=== PATIENT | female | born 1970 | race Caucasian/White ===

== ENCOUNTER 2016-05-09 00:37 | Observation (INO) | payer BC, OTHER, SELFPAY ==
[~2016-05-09] VITALS: Ht 162.6 cm; Wt 72.3 kg
[2016-05-09 01:09] LABS: HEMOGLOBIN 13.7 g/dL (11.7-16.4)
[2016-05-09 01:20] LABS: ASPARTATE AMINO TRANSFERASE 12 U/L (15-37); BLOOD UREA NITROGEN 19 mg/dL (7-18)
[2016-05-09] MEDS ORDERED: SODIUM CHLORIDE 0.9% 1,000ML IVBOLUS ONE (03:00)
[2016-05-09] MEDS ORDERED: ONDANSETRON 2MG/ML, 2ML IVPush ONE ×2 (03:00→05:00)
[2016-05-09] MEDS ORDERED: ONDANSETRON 2MG/ML, 2ML ONE ×2 (03:04→09:22)
[2016-05-09] MEDS ORDERED: HYDROmorphone 1 MG/ML, 1ML ONE ×3 (03:04→05:07)
[2016-05-09] MEDS: HYDROmorphone 1 MG/ML, 1ML IVPush PRN ×2 (03:11→03:43)
[2016-05-09] MEDS ORDERED: POTASSIUM CHLORIDE 20 MEQ in D5%-0.45% NACL 1,000 ML IV ONE (04:36)
[2016-05-09] MEDS ORDERED: HYDROmorphone 1 MG/ML, 1ML IVPush PRN (05:00)
[2016-05-09] MEDS ORDERED: HYDROmorphone 1 MG/ML, 1ML IV ONE (05:00)
[2016-05-09] MEDS ORDERED: SODIUM CHLORIDE FLUSH 10ML SYR IVF PRN (05:00)
[2016-05-09] MEDS ORDERED: ONDANSETRON 2MG/ML, 2ML IVPush PRN ×2 (05:00→10:30)
[2016-05-09] MEDS ORDERED: PROMETHAZINE 25 MG/ML, 1ML IM PRN (05:00)
[2016-05-09 05:30] VITALS: BP 103/65
[2016-05-09 06:46] VITALS: BP 84/54
[2016-05-09] MEDS ORDERED: BUPIVACAINE/PF-EPI 0.5% 1:200K ONE (07:14)
[2016-05-09] MEDS ORDERED: MIDAZOLAM 1 MG/ML, 2ML ONE (09:15)
[2016-05-09] MEDS ORDERED: FENTANYL PF 250 MCG/5ML ONE (09:15)
[2016-05-09] MEDS ORDERED: PROPOFOL 10 MG/ML, 20ML ONE (09:22)
[2016-05-09] MEDS ORDERED: CEFOTETAN 2 GM ONE (09:22)
[2016-05-09] MEDS ORDERED: GLYCOPYRROLATE 0.2MG/1ML ONE (09:22)
[2016-05-09] MEDS ORDERED: ROCURONIUM 10 MG/ML ONE (09:22)
[2016-05-09] MEDS ORDERED: DEXAMETHASONE 4 MG/ML, 1ML ONE (09:22)
[2016-05-09] MEDS ORDERED: NEOSTIGMINE 1 MG/ML, 10ML ONE (09:22)
[2016-05-09] MEDS ORDERED: SUCCINYLCHOLINE 20 MG/ML, 10ML ONE (09:22)
[2016-05-09] MEDS ORDERED: SCOPOLAMINE PATCH, 1.5MG PATCH.TD72 TD ONE (09:34)
[2016-05-09] MEDS ORDERED: BUPIVACAINE/PF-EPI 0.5% 1:200K INFIL ONE (09:40)
[2016-05-09] MEDS ORDERED: HYDROcodone/APAP 5/325 TABLET PO PRN (10:30)
[2016-05-09] MEDS ORDERED: morphine SULFATE 10 MG/ML, 1ML IVPush PRN (10:30)
[2016-05-09] MEDS ORDERED: KETOROLAC 30 MG/1 ML IVPush PRN (10:30)
[2016-05-09] MEDS ORDERED: ACETAMINOPHEN 650 MG/20.3 ML UDC ONE (10:45)
[2016-05-09] MEDS ORDERED: FENTANYL PF 100 MCG/2ML ONE (10:45)
[2016-05-09] MEDS ORDERED: ACETAMINOPHEN 325 MG TABLET ONE (10:46)
[2016-05-09] MEDS ORDERED: OXYcodone 5 MG/5 ML ORAL.SOL UDC ONE (10:46)
[2016-05-09] MEDS: FENTANYL PF 100 MCG/2ML IV PRN ×2 (10:47→10:53)
[2016-05-09] MEDS ORDERED: ACETAMINOPHEN 325 MG TABLET PO PRN (11:00)
[2016-05-09] MEDS ORDERED: HYDROmorphone 1 MG/ML, 1ML IV PRN (11:00)
[2016-05-09] MEDS ORDERED: OXYcodone 5 MG/5 ML ORAL.SOL UDC PO PRN (11:00)
[2016-05-09] MEDS ORDERED: PROMETHAZINE 25 MG/ML, 1ML IV PRN (11:00)
[2016-05-09] MEDS ORDERED: KETOROLAC 30 MG/1 ML ONE (11:02)
[2016-05-09 13:14] VITALS: BP 105/65
[2016-05-09 16:19] VITALS: BP 104/69
[2016-05-09] MEDS ORDERED: HYDR-882 PO (16:35)
[2016-05-09] MEDS ORDERED: ONDA4TAB7 PO (16:36)
[2016-05-10] MEDS ORDERED: ENOXAPARIN 40 MG/0.4 ML SQ SCH (10:30)
== END 2016-05-09 16:45 | disposition home or self-care (01) ==
LOC: ED 03:37 → EDIP 04:36 → 4NOR 05:27 → DCLOUNGE 16:30
PROVIDERS: ADMIT Surgery; ATTEND Surgery
DX: K80.00 Calculus of gallbladder with acute cholecystitis without obstruction (principal); R11.2 Nausea with vomiting, unspecified; K82.8 Other specified diseases of gallbladder; Z98.890 Other specified postprocedural states
CPT/HCPCS: 36415; 47562; 76700; 80053; 81003; 83690; 84703; 85025; 88304; 96361; 96374; 96375; 96376; 99285; G0378; J0330; J1100; J1170; J1885; J2250; J2405; J2704; J2710; J3010; J3480; J7030; J3490; S0074